=== PATIENT | male | born 1990 | race African-American/Black ===

== ENCOUNTER 2017-03-04 10:25 | Emergency (ER) | payer OTHER ==
[~2017-03-04] VITALS: Ht 185.4 cm; Wt 74.8 kg
[~2017-03-04 10:25] MED LIST: ALBUTEROL17 G1 IH; BACTRIM DS TABL1 TA1 PO; BENZONATATE PO; CORTISPORIN-TC10 ML OT; DERMACORT1 GM EXT; IBUPROFEN PO; NAPROSYN375 MG PO; PREDNISONE PO; PROVENTIL17 GM IH; RONDEC DM; ZITHROMAX PO; ZITHROMAX1 G/PKT PO
== END 2017-03-04 11:50 | disposition home or self-care (01) ==
LOC: CED 10:25 → CFTX 10:25
DX: S61.411A Laceration without foreign body of right hand, initial encounter (principal); W26.8XXA Contact with other sharp object(s), not elsewhere classified, initial encounter; Y92.009 Unspecified place in unspecified non-institutional (private) residence as the place of occurrence of the external cause; Z23 Encounter for immunization
CPT/HCPCS: 90471; 90715; 99283